=== PATIENT | male | born 1970 | race Two or more races ===

== ENCOUNTER 2020-10-17 19:09 | Emergency (ER) | payer OTHER ==
[~2020-10-17] VITALS: Ht 177.8 cm; Wt 70.0 kg
[2020-10-17] MEDS ORDERED: HYDROCODONE/ACETAMINOPHEN 5/325MG TABLET PO ONE (21:15)
[2020-10-17] MEDS ORDERED: KETOROLAC 30MG/ML VIAL IM NR (23:45)
[2020-10-18] MEDS ORDERED: NAPR-681 MT (00:44)
[2020-10-18] MEDS ORDERED: HYDR-4346 MT (00:44)
[2020-10-18] MEDS ORDERED: TAMS-11 MT (00:44)
[2020-10-18 00:50] VITALS: BP 125/70
== END 2020-10-18 01:00 | disposition home or self-care (01) ==
LOC: ER 19:09
DX: N13.2 Hydronephrosis with renal and ureteral calculous obstruction (principal)
CPT/HCPCS: 74176; 96372; 99284; J1885